=== PATIENT | male | born 2000 | race Hispanic/Latino ===

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

== ENCOUNTER 2022-01-14 14:16 | Emergency (ER) | payer BC, MEDICAID, OTHER ==
[~2022-01-14] VITALS: Ht 165.1 cm; Wt 70.8 kg
[2022-01-14 14:19] VITALS: BP 118/75
[2022-01-14] MEDS ORDERED: 0.9%NACL 1000ML 1,000 ML IV ONE (17:00)
== END 2022-01-14 18:25 | disposition home or self-care (01) ==
LOC: EDH 14:16
DX: E86.0 Dehydration (principal); R11.2 Nausea with vomiting, unspecified; R19.7 Diarrhea, unspecified; Z20.822 Contact with and (suspected) exposure to COVID-19
CPT/HCPCS: 99283; 87635; 87880; 87804 ×2; C9803; J7030

== ENCOUNTER 2022-02-24 07:47 | Emergency (ER) | payer OTHER ==
[~2022-02-24] VITALS: Ht 165.1 cm; Wt 61.7 kg
[2022-02-24 07:49] VITALS: BP 107/94
[2022-02-24] MEDS ORDERED: HYDR25CA PO (10:32)
== END 2022-02-24 10:46 | disposition home or self-care (01) ==
LOC: EDH 07:47
DX: F43.0 Acute stress reaction (principal)